=== PATIENT | male | born 1980 | race Caucasian/White ===

== ENCOUNTER → 2016-10-06 | Outpatient (CLI) | payer MEDICAID ==
[2016-10-07 16:40] LABS: CYTOPLASMIC (C-ANCA) <1:20 titer (Neg:<1:20)
[2016-10-08 10:14] LABS: ANGIOTENSIN-CONVERTING ENZYME 61 U/L (14-82)
[2016-10-09 13:37] LABS: ASPERGILLUS FLAVUS Negative (Neg:<1:1); ASPERGILLUS FUMIGATUS Negative (Neg:<1:1)
[2016-10-10 07:13] LABS: ASPERGILLUS NIGER Negative (Neg:<1:1)
== END ==
LOC: OD 11:48
PROVIDERS: ATTEND Internal Medicine Critical Care Medicine
DX: F41.9 Anxiety disorder, unspecified (principal); R05 Cough; R53.83 Other fatigue; R91.8 Other nonspecific abnormal finding of lung field; R06.02 Shortness of breath; Z72.0 Tobacco use
CPT/HCPCS: 36415; 82164; 85652; 86021; 86038; 86140; 86225; 86235; 86430; 86606

== ENCOUNTER → 2016-12-08 | Outpatient (CLI) | payer MEDICAID ==
[~2016-12-08] MED LIST: AMINOPHYLLINE INJ/PF 250 MG/10 ML SDV IV ONE; REGADENOSON INJ 0.4 MG/5 ML DISP.SYRIN IV ONE
--- NOTE | 2016-12-08 15:53 | DRAGON STRESS TEST REPORT ---
INTRAVENOUS LEXISCAN CARDIOLITE STRESS TEST USING SINGLE PHOTON EMMISION COMPUTERIZED TOMOGRAPHIC. DATE OF PROCEDURE: December 08, 2016 INDICATION : Chest pain. CARDIAC RISK FACTORS: Tobacco abuse RESTING EKG: Sinus rhythm without any baseline ST segment changes STRESS EKG: No significant changes noted with LexiScan bolus REASON FOR TERMINATION: Protocol. PROCEDURE REPORT: Baseline heart rate 53 beats per minute with blood pressure of 109/51. Patient had no significant complaints. Heart rate at 2 minutes post bolus 110 with a blood pressure of 103/45. 3 minutes post bolus heart rate 93 with blood pressure of 114/45. No significant EKG changes were noted. Patient had no significant complaints during the procedure or postprocedure. Patient injected with Aminophyllin 75 mg at 3 minutes or later after Lexiscan bolus. CONCLUSIONS: Normal EKG and hemodynamic response to IV LexiScan. NUCLEAR DATA: At rest the patient was given 10.36 millicuries of technetium 99 sestamibi injected intravenously. As per protocol rest gated SPECT images were obtained. Subsequently the patient was given intravenous LexiScan at a dose of 0.4 mg in 5 mL intravenously, followed by flush with normal saline. Subsequently the stress dose of 32.9 millicuries of technetium 99 sestamibi was injected intravenously. As per protocol stress gated images were obtained. NUCLEAR INTERPRETATION: Both raw and processed data were used for interpretation. Visual, qualitative, computer-generated quantitative data was used. There was good myocardial uptake of technetium compound. Motion artifact and soft tissue attenuations were noted. Increased visceral uptake was noted. No definitive areas of transient perfusion defect noted. No definitive areas of fixed perfusion defect or scars noted. EKG gated imaging showed LV EF at 58 %, rest and stress gated EF similar visually. T. I D. ratio was 1.04. Lung heart ratio noted to be within normal limits 0.30. No significant extracardiac and abnormal radiotracer activities were noted. RV free wall uptake was noted to be WNL. IMPRESSION: Also refer to comments under nuclear interpretation. Also test results needs to be interpreted in the context of pretest probability. 1. There is no definitive scintigraphic evidence of LexiScan induced myocardial ischemia. 2. There is no definitive scintigraphic evidence of myocardial infarction/scar. 3. EKG gated imaging shows left ejection fraction of approximately 58 %. 4. Clinical correlation requested as occasionally single vessel disease or balanced ischemia could be missed. In approximately 10% of the cases Lexiscan may not cause adequate vasodilatory stress. RECOMMENDATIONS: Aggressive risk factor modification, medical therapy. Clinical correlation with echocardiogram derived ejection fraction. Inability to exercise by itself can lead to increased cardiovascular event risks. Consider cardiology consultation and or follow-up if clinically indicated. I AM AVAILABLE FOR CARDIOLOGY CONSULTATION AND FOLLOWUP IF REQUESTED BY PMD Reuben Carballo M.D., [employer] cat sitter, Board certified in cardiovascular diseases, Nuclear cardiology, Echocardiography Cardiac CT and cardiac MRI Ph. [phone] [facility]
== END ==
LOC: RAD 06:51
PROVIDERS: ATTEND Internal Medicine Cardiovascular Disease
DX: R07.9 Chest pain, unspecified (principal)
CPT/HCPCS: 93017; 78452; A9500; J2785; J0280; Q9969

== ENCOUNTER 2016-12-22 09:06 | Emergency (ER) | payer MEDICAID ==
--- NOTE | 2016-12-22 09:53 | ER Document Report ---
ED General - General Chief Complaint: Passed Out Prior to Arrival Stated Complaint: ABDOMINAL PAIN Notes: Patient says he was driving his to work this morning when he started having abdominal pains. It became very severe and he then began to feel lightheaded and dizzy and went to pull his car over and passed out. His witnessed this loss of consciousness and had to stop the car. She says that he was shaking, almost like a seizure, and it lasted for a couple of minutes. Patient says he now feels fine. Denies having a fever or sweats. Denies any nausea or vomiting or diarrhea. He did have a bowel movement after this episode. Has not had any blood in his stools or black stools. No history of GI bleeding. TRAVEL OUTSIDE OF THE [place] IN LAST 30 DAYS: No - Related Data Allergies/Adverse Reactions: No Known Allergies Allergy (Verified 12/22/16 09:17) Past Medical History - Social History Smoking Status: Current Every Day Smoker Cigarette use (# per day): Yes Family History: Reviewed & Not Pertinent, Other - Asthma Patient has suicidal ideation: No Patient has homicidal ideation: No - Past Medical History Cardiac Medical History: Denies: Hx Coronary Artery Disease, Hx Heart Attack Pulmonary Medical History: Reports: Hx COPD Renal/ Medical History: Reports: Hx Kidney Stones. Denies: Hx Peritoneal Dialysis Past Surgical History: Reports: Hx Neurologic Surgery - BRAIN SURGERY AGE 2 to remove hematomas, no sequelae - Immunizations Immunizations up to date: Yes Hx Diphtheria, Pertussis, Tetanus Vaccination: Yes Review of Systems - Review of Systems Constitutional: denies: Fever Cardiovascular: denies: Chest pain, Palpitations Respiratory: denies: Cough, Short of breath, Wheezing Gastrointestinal: See HPI, Abdominal pain Genitourinary: No symptoms reported Neurological/Psychological: See HPI Physical Exam - Vital signs Vitals: Temp Pulse Resp BP Pulse Ox 97.5 F 63 20 119/74 100 12/22/16 09:17 12/22/16 09:17 12/22/16 09:17 12/22/16 09:17 12/22/16 09:17 Interpretation: Normal Course - Vital Signs Vital signs: Temp Pulse Resp BP Pulse Ox 97.5 F 63 20 119/74 100 12/22/16 09:17 12/22/16 09:17 12/22/16 09:17 12/22/16 09:17 12/22/16 09:17
[2016-12-22 10:24] LABS: ABSOLUTE EOSINOPHILS # (AUTO) 0.3 10^3/uL (0.0-0.6); ABSOLUTE LYMPHOCYTES (AUTO) 1.3 10^3/uL (0.5-4.7); ABSOLUTE MONOCYTES (AUTO) 0.5 10^3/uL (0.1-1.4); ABSOLUTE NEUT (AUTO) 4.8 10^3/uL (1.7-8.2); BASOPHILS % (AUTO) 0.6 % (0-2); EOSINOPHILS % (AUTO) 4.7 % (0-6); HEMATOCRIT 43.8 % (37.9-51.0); HEMOGLOBIN 14.2 g/dL (13.5-17.0); HGB HCT DIFFERENCE -1.2; LYMPHOCYTES % (AUTO) 18.9 % (13-45); MEAN CORPUSCULAR HEMOGLOBIN 29.3 pg (27.0-33.4); MEAN CORPUSCULAR HGB CONC 32.4 g/dL (32.0-36.0); MEAN CORPUSCULAR VOLUME 91 fl (80-97); MONOCYTES % (AUTO) 7.7 % (3-13); RED BLOOD COUNT 4.84 10^6/uL (4.35-5.55); SEGMENTED NEUTROPHILS % (AUTO) 68.1 % (42-78)
[2016-12-22 10:42] LABS: APPEARANCE,URINE CLEAR; BILIRUBIN,URINE NEGATIVE (NEGATIVE); GLUCOSE, URINE NEGATIVE (NEGATIVE); KETONES,URINE NEGATIVE (NEGATIVE); LEUKOCYTE ESTERASE,URINE NEGATIVE (NEGATIVE); NITRITE,URINE NEGATIVE (NEGATIVE); PROTEIN,URINE NEGATIVE (NEGATIVE); URINE SPECIFIC GRAVITY 1.006; UROBILINOGEN,URINE NEGATIVE mg/dL (<2.0)
[2016-12-22 10:44] LABS: ALANINE AMINOTRANSFERASE 32 U/L (21-72); ALKALINE PHOSPHATASE 83 U/L (38-126); ANION GAP 15 (5-19); ASPARTATE AMINO TRANSFERASE 17 U/L (17-59); BILIRUBIN,DIRECT 0.3 mg/dL (0.0-0.4); BILIRUBIN,TOTAL 0.8 mg/dL (0.2-1.3); BLOOD UREA NITROGEN 16 mg/dL (7-20); CALCIUM 9.8 mg/dL (8.4-10.2); CARBON DIOXIDE 23 mmol/L (22-30); CHLORIDE 106 mmol/L (98-107); CREATININE RESULT 0.82 mg/dL (0.52-1.25); GLUCOSE 89 mg/dL (75-110); LIPASE 74.7 U/L (23-300); POTASSIUM 4.4 mmol/L (3.6-5.0); SODIUM 144.4 mmol/L (137-145); TOTAL PROTEIN 7.8 g/dL (6.3-8.2)
--- NOTE | 2016-12-22 12:23 | ER Document Report ---
ED GI/ - General Mode of Arrival: Ambulatory Information source: Patient TRAVEL OUTSIDE OF THE [place] IN LAST 30 DAYS: No - HPI Patient complains to provider of: Abdominal pain Onset: This morning Location: Suprapubic Associated symptoms: Other - see notes above <PHILLIP PARDO - Last Filed: 12/22/16 17:22> <LAURAITALO ANN - Last Filed: 12/22/16 19:22> - General Chief Complaint: Passed Out Prior to Arrival Stated Complaint: ABDOMINAL PAIN Notes: 36 year old male with no history of GI surgeries or bleeds presents to the ED complaining of having a syncopal episode while driving a car secondary to severe suprapubic abdominal pain that occurred earlier this morning. Patient states that he was driving when he suddenly developed severe suprapubic pain and felt lightheaded and dizzy. Patient lost consciousness prior to stopping the vehicle, so his had to stop the car. Patient is not complaining of pain at bed side. Patient reports he has had pain like this before, but not to his suprapubic region. Patient denies being sick recently, but reports an intermittent cough. Patient denies nausea, vomiting, diarrhea, or blood in stool. (PHILLIP PARDO) - Related Data Allergies/Adverse Reactions: No Known Allergies Allergy (Verified 12/22/16 12:21) Past Medical History - General Information source: Patient - Social History Smoking Status: Current Every Day Smoker Cigarette use (# per day): Yes Family History: Other - Asthma Patient has suicidal ideation: No Patient has homicidal ideation: No - Past Medical History Cardiac Medical History: Denies: Hx Coronary Artery Disease, Hx Heart Attack Pulmonary Medical History: Reports: Hx Asthma, Hx COPD Renal/ Medical History: Reports: Hx Kidney Stones. Denies: Hx Peritoneal Dialysis Past Surgical History: Reports: Hx Neurologic Surgery - BRAIN SURGERY AGE 2 to remove hematomas, no sequelae - Immunizations Immunizations up to date: Yes Hx Diphtheria, Pertussis, Tetanus Vaccination: Yes <PHILLIP PRADO - Last Filed: 12/22/16 17:22> Review of Systems - Review of Systems Constitutional: No symptoms reported EENT: No symptoms reported Cardiovascular: No symptoms reported Respiratory: No symptoms reported Gastrointestinal: See HPI, Abdominal pain - suprapubic; not currently.. denies : Diarrhea, Nausea, Vomiting Genitourinary: No symptoms reported Male Genitourinary: No symptoms reported Musculoskeletal: No symptoms reported Skin: No symptoms reported Hematologic/Lymphatic: No symptoms reported Neurological/Psychological: No symptoms reported -: Yes All other systems reviewed and negative <PHILLIP PARDO - Last Filed: 12/22/16 17:22> Physical Exam - General General appearance: Alert In distress: None - HEENT Head: Normocephalic, Atraumatic Eyes: Normal Extraocular movements intact: Yes Pupils: PERRL - Respiratory Respiratory status: No respiratory distress Breath sounds: Normal - Cardiovascular Rhythm: Regular Heart sounds: Normal auscultation - Abdominal Inspection: Normal Distension: No distension Tenderness: Nontender - Back Back: Normal - Extremities General upper extremity: Normal inspection, Normal ROM General lower extremity: Normal inspection, Normal ROM - Neurological Neuro grossly intact: Yes Cognition: Normal Orientation: AAOx4 Jorge Coma Scale Eye Opening: Spontaneous Jorge Coma Scale Verbal: Oriented Parkin Coma Scale Motor: Obeys Commands Parkin Coma Scale Total: 15 Speech: Normal - Psychological Associated symptoms: Normal affect, Normal mood - Skin Skin Temperature: Warm Skin Moisture: Dry Skin Color: Normal <PHILLIP PARDO - Last Filed: 12/22/16 17:22> Course - Laboratory Result Diagrams: 12/22/16 10:06 12/22/16 10:06 <PHILLIP PARDO - Last Filed: 12/22/16 17:22> - Laboratory Result Diagrams: 12/22/16 10:06 12/22/16 10:06 - Diagnostic Test Radiology reviewed: Reports reviewed - EKG Interpretation by Me EKG shows normal: Sinus rhythm Rate: Normal Rhythm: NSR <ITALO SANCHEZ - Last Filed: 12/22/16 19:22> - Re-evaluation Re-evalutation: 12/22/16 13:16 Patient requested food and is eating without difficulty. Blood work within normal limits. No complaints at this time. 12/22/16 13:44 Patient feels better like to go home. No abdominal pain. No further concerns. Stable for discharge. Return if any worsening or concerning symptoms. (ITALO SANCHEZ) - Vital Signs Vital signs: Temp Pulse Resp BP Pulse Ox 97.7 F 63 11 L 114/73 100 12/22/16 14:01 12/22/16 09:18 12/22/16 14:01 12/22/16 14:01 12/22/16 14:01 Discharge <PHILLIP PARDO - Last Filed: 12/22/16 17:22> <ITALO SANCHEZ - Last Filed: 12/22/16 19:22> - Discharge Clinical Impression: Abdominal pain Qualifiers: Abdominal location: epigastric Qualified Code(s): R10.13 - Epigastric pain Syncope Qualifiers: Syncope type: unspecified Qualified Code(s): R55 - Syncope and collapse Condition: Stable Disposition: HOME, SELF-CARE Instructions: Abdominal Pain ([facility]), Syncopal Episode ([facility]), Vasovagal Symptoms ([facility]) Referrals: YELENA ROSAS MD [Primary Care Provider] - Follow up tomorrow Scribe Attestation: 12/22/16 19:22 I personally performed the services described in the documentation, reviewed and edited the documentation which was dictated to the scribe in my presence, and it accurately records my words and actions. (ITALO SANCHEZ) Scribe Documentation - Scribe Written by Jacobe:: Shania Tee, 12/22/2016 1224 acting as scribe for :: Laura <PHILLIP PARDO - Last Filed: 12/22/16 17:22>
[2016-12-22] MEDS ORDERED: NORMAL SALINE 500 ML IV ONE (13:04)
[2016-12-22 14:12] VITALS: BP 114/73
--- NOTE | 2016-12-22 15:38 | EKG REPORT ---
SEVERITY:- ABNORMAL ECG - SINUS RHYTHM PROBABLE LEFT ATRIAL ABNORMALITY LEFT VENTRICULAR HYPERTROPHY ST ELEV, PROBABLE NORMAL EARLY REPOL PATTERN : Confirmed by: Elisabet Soto MD 22-Dec-2016 15:36:38
== END 2016-12-22 14:28 | disposition home or self-care (01) ==
LOC: ER 09:06
DX: R10.13 Epigastric pain (principal); R10.30 Lower abdominal pain, unspecified; R55 Syncope and collapse; R05 Cough; F17.210 Nicotine dependence, cigarettes, uncomplicated; J44.9 Chronic obstructive pulmonary disease, unspecified; Z87.442 Personal history of urinary calculi
CPT/HCPCS: 93005; 99284; 96360; 36415; 83690; 85025; 80053; 81001; 84484; 70450; 93010; J7040

== ENCOUNTER 2017-03-07 14:19 | Emergency (ER) | payer MEDICAID ==
[2017-03-07 14:26] VITALS: BP 134/78
== END 2017-03-07 17:28 | disposition left against medical advice (07) ==
LOC: ER 14:19
DX: Z53.21 Procedure and treatment not carried out due to patient leaving prior to being seen by health care provider (principal)

== ENCOUNTER 2017-10-20 01:11 | Emergency (ER) | payer MEDICAID ==
[2017-10-20] MEDS ORDERED: OXYCODONE-ACETAMINOPHEN 5-325 MG TABLET PO ONE (02:37)
--- NOTE | 2017-10-20 03:14 | RADIOLOGY REPORT (SQ) ---
EXAM DESCRIPTION: L SPINE WHOLE COMPLETED DATE/TIME: 10/20/2017 2:55 am REASON FOR STUDY: back injury, pain COMPARISON: Lumbar spine x-ray 02/22/2016. NUMBER OF VIEWS: Five views including obliques. TECHNIQUE: AP, lateral, oblique, and sacral radiographic images acquired of the lumbar spine. LIMITATIONS: None. FINDINGS: MINERALIZATION: Normal. SEGMENTATION: Normal. No transitional anatomy. ALIGNMENT: There is mild levocurvature of the lumbar spine. VERTEBRAE: Maintained height. No compression fracture. DISCS: Preserved height. No significant osteophytes or end plate irregularity. POSTERIOR ELEMENTS: Pedicles and facets appear intact. HARDWARE: None in the spine. PARASPINAL SOFT TISSUES: Normal. PELVIS: SI joints intact. IMPRESSION: No acute radiographic finding at the lumbar spine. TECHNICAL DOCUMENTATION: JOB ID: [id number] [employer]- All Rights Reserved
[2017-10-20] MEDS ORDERED: CYCLOBENZAPRINE HCL 10 MG TABLET PO ONE (03:34)
[2017-10-20] MEDS ORDERED: HYDROCODONE/ACETAMINOPHEN 5-325 MG (6 TAB/ER DISP) PO PRN (03:34)
--- NOTE | 2017-10-20 03:34 | ER Document Report ---
ED Neck/Back Problem - General Chief Complaint: Back Injury Stated Complaint: BACK PAIN/INJURY Time Seen by Provider: 10/20/17 02:27 Mode of Arrival: Ambulatory Information source: Patient Notes: Patient is a 37-year-old male who presents to the ER today for low back pain after lifting a very heavy trailer 3 days ago. Patient states that he immediately had sharp back pain in the middle of his low back. He states he thought it would go away so he is just been resting at home but that it has stayed. He denies any numbness or tingling, radiation of the pain anywhere. TRAVEL OUTSIDE OF THE [place] IN LAST 30 DAYS: No - Related Data Allergies/Adverse Reactions: No Known Allergies Allergy (Verified 10/20/17 01:39) Past Medical History - General Information source: Patient - Social History Smoking Status: Unknown if Ever Smoked Family History: Other - Asthma Patient has suicidal ideation: No Patient has homicidal ideation: No - Past Medical History Cardiac Medical History: Denies: Hx Coronary Artery Disease, Hx Heart Attack Pulmonary Medical History: Reports: Hx Asthma, Hx COPD Renal/ Medical History: Reports: Hx Kidney Stones. Denies: Hx Peritoneal Dialysis Past Surgical History: Reports: Hx Neurologic Surgery - BRAIN SURGERY AGE 2 to remove hematomas, no sequelae - Immunizations Immunizations up to date: Yes Hx Diphtheria, Pertussis, Tetanus Vaccination: Yes Review of Systems - Review of Systems Constitutional: No symptoms reported EENT: No symptoms reported Cardiovascular: No symptoms reported Respiratory: No symptoms reported Gastrointestinal: No symptoms reported Genitourinary: No symptoms reported Male Genitourinary: No symptoms reported Musculoskeletal: See HPI Skin: No symptoms reported Hematologic/Lymphatic: No symptoms reported Neurological/Psychological: No symptoms reported Physical Exam - Vital signs Vitals: Temp Pulse Resp BP Pulse Ox 98.6 F 70 16 121/71 100 10/20/17 01:44 10/20/17 01:44 10/20/17 01:44 10/20/17 01:44 10/20/17 01:44 - Notes Notes: PHYSICAL EXAMINATION: GENERAL: Uncomfortable appearing, but in no acute distress. HEAD: Atraumatic, normocephalic. EYES: Pupils equal round and reactive to light, extraocular movements intact, sclera anicteric, conjunctiva are normal. ENT: ear canals without erythema or foreign body, TMs pearly mcintyre with good bony landmarks, nares patent, oropharynx clear without exudates. Moist mucous membranes. NECK: Normal range of motion, supple without lymphadenopathy LUNGS: CTAB and equal. No wheezes rales or rhonchi. HEART: Regular rate and rhythm without murmurs ABDOMEN: Soft, no tenderness. No guarding, no rebound BACK: Lumbar vertebral tenderness, normal ROM GI/: no CVA tenderness EXTREMITIES: Normal range of motion, no pitting edema. No cyanosis. NEUROLOGICAL: Cranial nerves grossly intact. Normal sensory/motor exams. PSYCH: Normal mood, normal affect. SKIN: Warm, Dry, normal turgor, no rashes or lesions noted Course - Re-evaluation Re-evalutation: 10/20/17 05:45 X-ray of the lumbar spine negative for any acute pathology today. Patient placed on muscle relaxers and given anti-inflammatories. - Vital Signs Vital signs: Temp Pulse Resp BP Pulse Ox 97.5 F 62 16 115/76 99 10/20/17 03:46 10/20/17 03:46 10/20/17 03:46 10/20/17 03:46 10/20/17 03:46 Discharge - Discharge Clinical Impression: Back pain Qualifiers: Back pain location: low back pain Chronicity: acute Back pain laterality: midline Sciatica presence: without sciatica Qualified Code(s): M54.5 - Low back pain Condition: Stable Disposition: HOME, SELF-CARE Additional Instructions: Return immediately for any new or worsening symptoms. Follow up with primary care provider, call tomorrow to make followup appointment. Prescriptions: Cyclobenzaprine HCl [Flexeril 10 mg Tablet] 10 mg PO TIDP PRN #15 tab PRN Reason: Ibuprofen [Motrin 800 mg Tablet] 800 mg PO Q8H PRN #30 tab PRN Reason:
[2017-10-20 03:47] VITALS: BP 115/76
== END 2017-10-20 04:00 | disposition home or self-care (01) ==
LOC: ER 01:11
DX: M54.5 Low back pain (principal); X50.0XXA Overexertion from strenuous movement or load, initial encounter
CPT/HCPCS: 99283; 72110; J3490

== ENCOUNTER 2017-12-11 16:02 | Emergency (ER) | payer MEDICAID ==
[2017-12-11 16:12] VITALS: BP 116/72
[2017-12-11] MEDS ORDERED: PREDNISONE 20 MG TABLET PO ONE (16:43)
[2017-12-11] MEDS ORDERED: CEPHALEXIN 500 MG CAPSULE PO ONE (16:43)
[2017-12-11] MEDS ORDERED: IBUPROFEN 800 MG TABLET PO ONE (16:43)
--- NOTE | 2017-12-11 16:50 | ER Document Report ---
ED Skin Rash/Insect Bite/Abscs - General Chief Complaint: Arm Problem Stated Complaint: RIGHT ARM PAIN Time Seen by Provider: 12/11/17 16:21 Mode of Arrival: Ambulatory Information source: Patient Notes: 37-year-old male presents to ED for red swollen area to the right hand and posterior right elbow that is present when he woke up this morning. Both areas appear to have an insect bite on them that he has been scratching and itching. He states they both burn and itch. He states he has been taken Tylenol with no relief. He states he had to go on a field trip with his friends daughter this morning and this is as early as he can come to the emergency room. Patient asked what he was going to get for his pain for these red areas. I explained to him that he was getting ibuprofen for his pain antibiotic for the cellulitis and he was good that Benadryl when he got home for the itching and I was going to give him a dose of prednisone for the itching. He states he needs something stronger because he has chronic pain to his back and neck. I explained to him that we do not give narcotics for this exam or for chronic pain. TRAVEL OUTSIDE OF THE [place] IN LAST 30 DAYS: No - HPI Patient complains to provider of: Tender/swollen area, Insect bite - Possible insect bite to hand and elbow Onset: This morning Onset/Duration: Persistent, Worse Quality of pain: Burning Severity: Moderate Pain Level: 4 Skin Character: Erythema, Thickening, Other - Insect bite appearing redness and swelling with some warmth after he has been scratching it all day. 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 Lives with: Spouse/Significant other Family History: Reviewed & Not Pertinent, COPD, Other - Asthma Patient has suicidal ideation: No Patient has homicidal ideation: No - Past Medical History Cardiac Medical History: Reports: None Pulmonary Medical History: Reports: Hx Asthma, Hx COPD EENT Medical History: Reports: None Neurological Medical History: Reports: None Endocrine Medical History: Reports: None Renal/ Medical History: Reports: Hx Kidney Stones Malignancy Medical History: Reports None GI Medical History: Reports: Hx Gastritis - And gastroenteritis Musculoskeltal Medical History: Reports Hx Arthritis, Reports Hx Musculoskeletal Deformity, Reports Hx Musculoskeletal Trauma Skin Medical History: Reports Hx Cellulitis Psychiatric Medical History: Reports: Hx Anxiety, Hx Bipolar Disorder, Hx Depression, Other - Was a cutter while he was with his previous significant other days he is no Traumatic Medical History: Reports: Hx Fractures - Left arm Infectious Medical History: Reports: None Past Surgical History: Reports: Hx Neurologic Surgery - BRAIN SURGERY AGE 2 to remove hematomas, no sequelae, Hx Oral Surgery - [place] teeth - Immunizations Immunizations up to date: Yes Hx Diphtheria, Pertussis, Tetanus Vaccination: Yes Review of Systems - Review of Systems Constitutional: No symptoms reported EENT: No symptoms reported Cardiovascular: No symptoms reported Respiratory: No symptoms reported Gastrointestinal: No symptoms reported Genitourinary: No symptoms reported Male Genitourinary: No symptoms reported Musculoskeletal: No symptoms reported Skin: Other - Red swollen warm area to the right hand and elbow. No abscess at this time. Appears to have some insect bites in the area. Hematologic/Lymphatic: No symptoms reported Neurological/Psychological: No symptoms reported -: Yes All other systems reviewed and negative Physical Exam - Vital signs Vitals: Temp Pulse Resp BP Pulse Ox 98.2 F 78 18 116/72 99 12/11/17 16:11 12/11/17 16:11 12/11/17 16:11 12/11/17 16:11 12/11/17 16:11 Interpretation: Normal - General General appearance: Appears well, Alert - HEENT Head: Normocephalic, Atraumatic Eyes: Normal Pupils: PERRL - Respiratory Respiratory status: No respiratory distress Chest status: Nontender Breath sounds: Normal Chest palpation: Normal - Cardiovascular Rhythm: Regular Heart sounds: Normal auscultation Murmur: No - Abdominal Inspection: Normal Distension: No distension Bowel sounds: Normal Tenderness: Nontender Organomegaly: No organomegaly - Back Back: Normal, Nontender - Extremities General upper extremity: Normal ROM General lower extremity: Normal inspection, Nontender, Normal color, Normal ROM , Normal temperature, Normal weight bearing. No: Larry's sign Elbow: Tender, Other - Red mildly swollen area just above the right elbow what appears to be insect bites in the area with mild warmth to the area. No: Abrasion, Deformity, Dislocation, Ecchymosis, Instability, Joint effusion, Laceration, Limited ROM, Swollen bursa Hand: Tender, No evidence of human bite - with what appears to be insect bites and it it is warm to the touch, No evidence of FB, Swelling, Other - Erythematous right hand. No: Abrasion, Deformity, Dislocation, Ecchymosis, Instability, Laceration, Nail injury, Tendon deficit - Neurological Neuro grossly intact: Yes Cognition: Normal Orientation: AAOx4 [place] Coma Scale Eye Opening: Spontaneous [place] Coma Scale Verbal: Oriented Jorge Coma Scale Motor: Obeys Commands Jorge Coma Scale Total: 15 Speech: Normal Motor strength normal: LUE, RUE, LLE, RLE Sensory: Normal - Psychological Associated symptoms: Normal affect, Normal mood - Skin Skin Temperature: Warm Skin Moisture: Dry Skin Color: Normal Location of irregularity: Extremities - Right hand and elbow cellulitis Character of irregularity: Erythematous, Urticarial Irregularity with: Swelling, Tenderness Course - Re-evaluation Re-evalutation: 12/12/17 02:13 Patient treated with prednisone and ibuprofen and Keflex for his redness swelling and discomfort to his right arm and hand. Patient instructed to take Benadryl as soon as he comes home. Patient was discharged home with a prescription for Keflex. Patient to follow-up with primary doctor. - Vital Signs Vital signs: Temp Pulse Resp BP Pulse Ox 98.2 F 78 18 116/72 99 12/11/17 16:11 12/11/17 16:11 12/11/17 16:11 12/11/17 16:11 12/11/17 16:11 Discharge - Discharge Clinical Impression: Cellulitis of right hand excluding fingers and thumb, Cellulitis of right elbow Insect bite Qualifiers: Encounter type: initial encounter Qualified Code(s): W57.XXXA - Bitten or stung by nonvenomous insect and other nonvenomous arthropods, initial encounter Condition: Stable Disposition: HOME, SELF-CARE Instructions: Family Physicians / Practices Additional Instructions: Insect Bites You have been bitten by an insect. These bites can cause two types of swelling: an initial swelling due to insect saliva or injected poison, and a late reaction due to your body's allergic reaction. This initial local reaction may be uncomfortable but is not dangerous. Often there's an itchy "hive" at the bite location. This is treated with antihistamines, cold compresses, and resting the affected body part. The later reaction often develops about the second day. The entire area becomes very swollen, red, itchy, and tender. This is an allergic reaction. Your body is attacking the leftover insect saliva or venom. This type of allergy is unpleasant, but not dangerous. We treat this swelling with cortisone -type medicine. Sometimes we use antibiotics if we're worried about infection. Antihistamines help with the itch. If you develop a fever, chills, a red streak, or swollen glands in the area of the bite, infection may be starting. Return at once. CELLULITIS: You have an infection of your skin and underlying soft tissues called cellulitis. This is due to bacteria, which can enter through any break in the skin, or even through an irritated hair follicle. Untreated, cellulitis will usually worsen. Antibiotics are required. Usually, warm packs or warm soaks, and elevation of the infected area are recommended. You should start getting better within 24 to 36 hours. Most infections respond quickly to the right medication. Follow-up care is important, however, to check for abscess (boil) formation, unsuspected foreign body, or resistant infection. If you develop fever, chills, or if the area of infection is becoming rapidly more swollen or painful, call the doctor at once. Cephalexin The antibiotic you've been prescribed is a member of the cephalosporin class. This type of antibiotic covers a wide variety of infections, including those of the skin, lungs, and urinary tract. It's useful for staph infections. This antibiotic is slightly similar to the penicillin family. In rare cases , a person who is allergic to penicillin will also be allergic to this medication. If you have had a severe allergic reaction to penicillin, and have not taken this antibiotic since that time, notify your doctor. Antibiotics which cover many germs ("broad spectrum" antibiotics) are more likely to cause diarrhea or "yeast" infections. Women prone to vaginal yeast problems may suffer an attack after taking this antibiotic. In infants, oral thrush (white spots "stuck" on the cheek) or yeast diaper rash may result. See your doctor if these problems occur. Call at once if you develop itching, hives , shortness of breath, or lightheadedness. Diphenhydramine The use of diphenhydramine (Benadryl) has been recommended to control allergic symptoms. The 25 mg strength is available over- the-counter, as well as the elixir. This antihistamine is used for many symptoms. It's useful for itching, watering eyes and nose, allergic swelling, hives, and insect stings. The medication can be repeated four times daily. Age Elixir (12.5 mg/tsp) 25 mg pill 1 yr 1/4 tsp 2-3 yr 1/2 tsp 4-8 yr 1 tsp 9-14 yr 2 tsp one tab adult 1-2 tabs Antihistamines may cause drowsiness, especially with the first dose. Do not operate machinery or drive while under the effects of the medication. Do not combine the medication with alcohol, or with any other medication without talking to your doctor. Ibuprofen Ibuprofen is an excellent, safe drug for pain control. In addition, it has potent antiinflammatory effects which are beneficial, especially in the treatment of injuries, arthritis, or tendonitis. It's best to take ibuprofen with food. Persons with ulcer disease or allergy to aspirin should notify their physician of this before taking ibuprofen. Take the medication exactly as prescribed. Don't take additional doses unless instructed to do so by your doctor. If you develop wheezing, shortness of breath, hives, faintness, stomach pain, vomiting, or dark black stools, return for re-evaluation at once. Ice & Elevation Apply ice packs frequently against the painful area. Many different schedules are recommended, such as "20 minutes on, 20 minutes off" or "one hour ice, two hours rest." If you need to work, you may need to go longer between ice treatments. You should plan to have the area ice packed AT LEAST one- fourth of the time. The ice should be applied over the wrap, tape, or splint, or over a layer of cloth -- not directly against the skin. Some ice bags have a built-in cloth and can be put directly on the skin. Your injured part should be elevated as much as possible over the next 48 hours. Try to keep the injury above the level of the heart. Avoid use of the injured area. Elevation and rest will decrease the swelling. FOLLOW-UP CARE: If you have been referred to a physician for follow-up care, call the physician s office for an appointment as you were instructed or within the next two days. If you experience worsening or a significant change in your symptoms, notify the physician immediately or return to the Emergency Department at any time for re-evaluation. Prescriptions: Cephalexin Monohydrate [Keflex 500 mg Capsule] 500 mg PO Q6H 5 Days capsule Forms: Smoking Cessation Education
== END 2017-12-11 17:11 | disposition home or self-care (01) ==
LOC: ER 16:02
DX: L03.113 Cellulitis of right upper limb (principal); S60.561A Insect bite (nonvenomous) of right hand, initial encounter; S50.361A Insect bite (nonvenomous) of right elbow, initial encounter; M79.601 Pain in right arm; M54.9 Dorsalgia, unspecified; M54.2 Cervicalgia; G89.29 Other chronic pain; W57.XXXA Bitten or stung by nonvenomous insect and other nonvenomous arthropods, initial encounter; F17.210 Nicotine dependence, cigarettes, uncomplicated; J44.9 Chronic obstructive pulmonary disease, unspecified
CPT/HCPCS: 99406; 99283; J3490; J7512

== ENCOUNTER 2018-01-24 20:10 | Emergency (ER) | payer MEDICAID ==
[2018-01-24 20:40] VITALS: BP 117/66
[2018-01-24] MEDS ORDERED: HYDROCODONE/ACETAMINOPHEN 5-325 MG (6 TAB/ER DISP) PO PRN (21:30)
[2018-01-24] MEDS ORDERED: CEPHALEXIN 500 MG CAPSULE PO ONE (21:30)
--- NOTE | 2018-01-24 21:34 | ER Document Report ---
HPI - HPI Patient complains to provider of: facial swelling Pain Level: 4 Context: Patient is a 37-year-old male that comes emergency department for chief complaint of pain in his left jaw towards the back near his ear, he states that swelling started over the past day, has worsened and now has become painful. He denies injury, sore throat, neck pain, fever. He states he has had dental infections in the past but they felt very different. He smokes, he denies any daily medications other than recently taking azithromycin. - CONSTITUTIONAL Constitutional: DENIES: Fever, Chills - EENT EENT: DENIES: Sore Throat, Ear Pain, Eye problems - NEURO Neurology: DENIES: Headache, Weakness, Vision blurred, Dizzinesss / Vertigo - CARDIOVASCULAR Cardiovascular: DENIES: Chest pain - RESPIRATORY Respiratory: DENIES: Trouble Breathing, Coughing - GASTROINTESTINAL Gastrointestinal: DENIES: Abdominal Pain, Black / Bloody Stools - URINARY Urinary: DENIES: Dysuria, Urgency, Frequency - REPRODUCTIVE Reproductive: DENIES: :, Postmenopausal, Abnormal bleeding / discharge - MUSCULOSKELETAL Musculoskeletal: DENIES: Extremity pain Past Medical History - General Information source: Patient - Social History Smoking Status: Current Every Day Smoker Chew tobacco use (# tins/day): No Frequency of alcohol use: None Drug Abuse: None Lives with: Family Family History: Reviewed & Not Pertinent, COPD, Other - Asthma Patient has suicidal ideation: No Patient has homicidal ideation: No Pulmonary Medical History: Reports: Hx Asthma, Hx COPD Renal/ Medical History: Reports: Hx Kidney Stones. Denies: Hx Peritoneal Dialysis GI Medical History: Reports: Hx Gastritis - And gastroenteritis Musculoskeltal Medical History: Reports Hx Arthritis, Reports Hx Musculoskeletal Deformity, Reports Hx Musculoskeletal Trauma Skin Medical History: Reports Hx Cellulitis Psychiatric Medical History: Reports: Hx Anxiety, Hx Bipolar Disorder, Hx Depression Traumatic Medical History: Reports: Hx Fractures - Left arm Past Surgical History: Reports: Hx Neurologic Surgery - BRAIN SURGERY AGE 2 to remove hematomas, no sequelae, Hx Oral Surgery - [place] teeth - Immunizations Immunizations up to date: Yes Hx Diphtheria, Pertussis, Tetanus Vaccination: Yes Vertical Provider Document - CONSTITUTIONAL General Appearance: No Apparent Distress, Thin - INFECTION CONTROL TRAVEL OUTSIDE OF THE [place] IN LAST 30 DAYS: No - HEENT HEENT: Atraumatic, Normocephalic. negative: Normal ENT Exam - There is a swelling over the mandible at the posterior aspect just anterior to the left ear , tenderness to the area, no overt erythema, no abnormal heat to the area, no nearby adenopathy, unremarkable ear exam, unremarkable oropharyngeal exam except for some dental caries but no evidence of dental infection. No stones noted underneath the tongue. - NECK Neck: Normal Inspection - RESPIRATORY Respiratory: Breath Sounds Normal, No Respiratory Distress - CARDIOVASCULAR Cardiovascular: Regular Rate, Regular Rhythm - GI/ABDOMEN Gastrointestinal: Abdomen Soft, Abdomen Non-Tender - MUSCULOSKELETAL/EXTREMETIES Musculoskeletal/Extremeties: MAEW, FROM, Non-Tender - NEURO Level of Consciousness: Awake, Alert, Appropriate - DERM Integumentary: Warm, Dry, No Rash Course - Re-evaluation Re-evalutation: Examination is consistent with inflammation and swelling of the parotid gland, no adenopathy, no evidence of El's angina, no evidence of abscess, unremarkable oropharyngeal exam. Discussed with patient, decision was made to cover with Keflex because of developing pain in the area, discussed expectations , management, follow-up, return precautions. Patient states satisfaction and agreement with plan. - Vital Signs Vital signs: Temp Pulse Resp BP Pulse Ox 98.6 F 90 20 117/66 98 01/24/18 20:39 01/24/18 20:39 01/24/18 20:39 01/24/18 20:39 01/24/18 20:39 Discharge - Discharge Clinical Impression: Facial swelling, Salivary gland swelling Condition: Stable Disposition: HOME, SELF-CARE Additional Instructions: Your examination is consistent with swelling of the parotid salivary gland. Keep well hydrated, apply moist heat to the involved area, massage the gland, and "milk" the duct. Nonpharmacologic agents that promote salivary flow (eg, tart, hard candies such as lemon drops) may be helpful and should be used throughout the day as often as tolerated. Avoid medications that reduce salivary gland production including Benadryl and [id number] antiallergy medications for now. Take ibuprofen or Tylenol for pain, use the pain medicine provided especially at night if needed for sleep. Take the Keflex antibiotics as prescribed. Follow-up with primary care. Return if you develop any concerning symptoms including severe worsening swelling, fever, or any other concerning or worsening symptoms. Prescriptions: Cephalexin Monohydrate [Keflex 500 mg Capsule] 500 mg PO QID #28 capsule
== END 2018-01-24 21:46 | disposition home or self-care (01) ==
LOC: ER 20:10
DX: R59.0 Localized enlarged lymph nodes (principal); R68.84 Jaw pain; K02.9 Dental caries, unspecified; J44.9 Chronic obstructive pulmonary disease, unspecified; F17.200 Nicotine dependence, unspecified, uncomplicated
CPT/HCPCS: 99283

== ENCOUNTER 2018-04-20 21:54 | Emergency (ER) | payer MEDICAID ==
[2018-04-20] MEDS ORDERED: NORMAL SALINE 1000 ML 1,000 ML IV ONE (23:18)
[2018-04-20] MEDS ORDERED: ONDANSETRON HCL INJ/PF 4 MG/2 ML SDV IV ONE (23:19)
--- NOTE | 2018-04-20 23:20 | ER Document Report ---
ED General - General Chief Complaint: Nausea/Vomiting Stated Complaint: VOMITING/DIZZY Time Seen by Provider: 04/20/18 22:53 Notes: Patient is a 37-year-old male comes emergency department for chief complaint of nausea and vomiting. He states that he was started on medications gabapentin and baclofen yesterday, took his first dose last night and that made him fall asleep, states that 30 minutes after taking the pills this afternoon he suddenly became very nauseated and vomited multiple times. He states he still feels nauseated, he feels dehydrated, he reports mild pain in his upper abdomen after the vomiting. He denies fever or chills he reports normal bowel movement , the people who ate the food he ate have not had any vomiting. Denies any alcohol, recreational drugs. He smokes, he has a history of back pain and was placed on medications for this. TRAVEL OUTSIDE OF THE [place] IN LAST 30 DAYS: No - Related Data Allergies/Adverse Reactions: No Known Allergies Allergy (Verified 04/20/18 23:11) Past Medical History - General Information source: Patient - Social History Smoking Status: Current Every Day Smoker Frequency of alcohol use: None Drug Abuse: None Lives with: Family Family History: Reviewed & Not Pertinent, COPD, Other - Asthma Patient has suicidal ideation: No Patient has homicidal ideation: No Pulmonary Medical History: Reports: Hx Asthma, Hx COPD Renal/ Medical History: Reports: Hx Kidney Stones. Denies: Hx Peritoneal Dialysis GI Medical History: Reports: Hx Gastritis - And gastroenteritis Musculoskeletal Medical History: Reports Hx Arthritis, Reports Hx Musculoskeletal Deformity, Reports Hx Musculoskeletal Trauma Skin Medical History: Reports Hx Cellulitis Psychiatric Medical History: Reports: Hx Anxiety, Hx Bipolar Disorder, Hx Depression Traumatic Medical History: Reports: Hx Fractures - Left arm Past Surgical History: Reports: Hx Neurologic Surgery - BRAIN SURGERY AGE 2 to remove hematomas, no sequelae, Hx Oral Surgery - [place] teeth - Immunizations Immunizations up to date: Yes Hx Diphtheria, Pertussis, Tetanus Vaccination: Yes Review of Systems - Review of Systems Constitutional: No symptoms reported EENT: No symptoms reported Cardiovascular: No symptoms reported Respiratory: No symptoms reported Gastrointestinal: See HPI Genitourinary: No symptoms reported Male Genitourinary: No symptoms reported Musculoskeletal: No symptoms reported Skin: No symptoms reported Hematologic/Lymphatic: No symptoms reported Neurological/Psychological: No symptoms reported Physical Exam - Vital signs Vitals: Temp Pulse Resp BP Pulse Ox 97.9 F 89 18 133/83 H 100 04/20/18 22:02 04/20/18 22:02 04/20/18 22:02 04/20/18 22:02 04/20/18 22:02 - Notes Notes: GENERAL: Alert. No acute distress. HEAD: Normocephalic, atraumatic. EYES: Pupils equal, round, and reactive to light. Extraocular movements intact. ENT: Oral mucosa dry, normal oropharyngeal exam, unremarkable ENT exam otherwise NECK: Full range of motion. Supple. Trachea midline. LUNGS: Clear to auscultation bilaterally, no wheezes, rales, or rhonchi. No respiratory distress. HEART: Regular rate and rhythm. No murmur ABDOMEN: Mild epigastric tenderness, no right upper quadrant or left quadrant tenderness, remaining abdomen benign. EXTREMITIES: Moves all 4 extremities spontaneously. No edema, normal radial and dorsalis pedis pulses bilaterally. No cyanosis. BACK: no cervical, thoracic, lumbar midline tenderness. No saddle anesthesia, normal distal neurovascular exam. NEUROLOGICAL: Alert and oriented x3. Normal speech. [cranial nerves II through XII grossly intact]. PSYCH: Normal affect, normal mood. SKIN: Warm, dry, normal turgor. No rashes or lesions noted. Course - Re-evaluation Re-evalutation: Dry mucous membranes with dark urine and trace ketones. Given IV fluids. Patient's abdominal exam is very unremarkable other than mild epigastric tenderness. Initially given nausea medicine, afterwards give p.o. medicine. He tolerated this without any difficulty. Afterwards symptoms resolved. CMP is unremarkable including LFTs, bilirubin, alk phos. Lipase unremarkable. Low suspicion of acute abdomen or obstructive pathology. On reevaluation patient states that he just finished taking prednisone for his back as well. Has a history of gastritis, he smokes. Suspect gastritis component. Could also be medication she just started. I discussed these in detail, discussed options. Patient will be discharged with symptomatic medications, follow-up instructions, and return precautions which were discussed. Patient states understanding and agreement. - Vital Signs Vital signs: Temp Pulse Resp BP Pulse Ox 97.9 F 58 L 19 122/76 97 04/21/18 03:16 04/21/18 03:16 04/21/18 03:16 04/21/18 03:16 04/21/18 03:16 - Laboratory Result Diagrams: 04/21/18 00:27 Laboratory results interpreted by me: 04/20/18 04/21/18 23:11 00:27 Sodium 147.2 H Carbon Dioxide 31 H BUN 21 H Total Protein 8.3 H Urine Ketones TRACE H Urine Urobilinogen 2.0 H Discharge - Discharge Clinical Impression: Dehydration Nausea and vomiting Qualifiers: Vomiting type: unspecified Vomiting Intractability: non-intractable Qualified Code(s): R11.2 - Nausea with vomiting, unspecified Condition: Stable Disposition: HOME, SELF-CARE Additional Instructions: Your labs show some dehydration but no other concerning findings. Your evaluation is suggestive of gastritis (inflammation of your upper gastrointestinal tract), it is also quite likely that you are having side effects from the medications although this is not definite. Recommendation is to take the famotidine as prescribed, take Phenergan if needed for nausea, you have the option of discontinuing both or one of the medications to see how you do. Follow-up with primary care. Return for any concerning symptoms including vomiting, vomiting blood, fever, severe abdominal pain, black stools, or any other concerning symptoms. Prescriptions: Famotidine [Pepcid 20 mg Tablet] 20 mg PO BID #20 tablet Promethazine HCl [Phenergan 25 mg Tablet] 25 mg PO Q6H PRN #20 tablet PRN Reason: Referrals: LILIAN CHAPA PA-C [Primary Care Provider] - Follow up as needed
[2018-04-21 00:17] LABS: AMORPHOUS SEDIMENT,URINE TRACE /HPF; APPEARANCE,URINE CLOUDY; BILIRUBIN,URINE NEGATIVE (NEGATIVE); COLOR,URINE AMBER; GLUCOSE, URINE NEGATIVE (NEGATIVE); KETONES,URINE TRACE mg/dL (NEGATIVE); LEUKOCYTE ESTERASE,URINE NEGATIVE (NEGATIVE); NITRITE,URINE NEGATIVE (NEGATIVE); PROTEIN,URINE NEGATIVE (NEGATIVE); URINE SPECIFIC GRAVITY 1.019
[2018-04-21] MEDS ORDERED: HYDROCODONE/ACETAMINOPHEN 5-325 MG TABLET PO ONE (00:32)
[2018-04-21] MEDS ORDERED: SUCRALFATE 1 GM TABLET PO ONE (00:32)
[2018-04-21] MEDS ORDERED: FAMOTIDINE 20 MG TABLET PO ONE (00:32)
[2018-04-21 01:31] LABS: ALANINE AMINOTRANSFERASE 31 U/L (21-72); ALBUMIN 4.9 g/dL (3.5-5.0); ALKALINE PHOSPHATASE 75 U/L (38-126); ANION GAP 11 (5-19); ASPARTATE AMINO TRANSFERASE 25 U/L (17-59); BILIRUBIN,DIRECT 0.4 mg/dL (0.0-0.4); BILIRUBIN,TOTAL 0.5 mg/dL (0.2-1.3); BLOOD UREA NITROGEN 21 mg/dL (7-20); CALCIUM 10.1 mg/dL (8.4-10.2); CARBON DIOXIDE 31 mmol/L (22-30); CHLORIDE 105 mmol/L (98-107); GLUCOSE 92 mg/dL (75-110); LIPASE 88.3 U/L (23-300); POTASSIUM 4.5 mmol/L (3.6-5.0); SODIUM 147.2 mmol/L (137-145); TOTAL PROTEIN 8.3 g/dL (6.3-8.2)
[2018-04-21] MEDS ORDERED: ONDANSETRON ODT 4 MG TAB (6 TAB/ER DISP) PO PRN (02:53)
[2018-04-21 03:18] VITALS: BP 122/76
== END 2018-04-21 03:16 | disposition home or self-care (01) ==
LOC: ER 21:54
DX: E86.0 Dehydration (principal); R11.2 Nausea with vomiting, unspecified; F17.200 Nicotine dependence, unspecified, uncomplicated; J44.9 Chronic obstructive pulmonary disease, unspecified; Z87.442 Personal history of urinary calculi
CPT/HCPCS: 99284; 96361; 96374; 36415; 83690; 80053; 81001; J3490 ×2; J2405; J7030

== ENCOUNTER 2018-10-25 08:46 | Emergency (ER) | payer MEDICAID ==
[2018-10-25 08:52] VITALS: BP 126/81
--- NOTE | 2018-10-25 10:00 | ER Document Report ---
ED General - General Chief Complaint: Headache Stated Complaint: HEADACHE Time Seen by Provider: 10/25/18 09:50 Primary Care Provider: LILIAN CHAPA PA-C [Primary Care Provider] - Follow up as needed Mode of Arrival: Ambulatory Information source: Patient Notes: 38-year-old male presents emergency department with complaints of sinus pressure that started yesterday. Patient states that he had some associated nausea and vomiting yesterday but this resolved. Patient has a history of chronic back pain and takes oxycodone. Patient states that he has been taking this medication with minimal relief of symptoms. Patient states that today his sinus pressure has resolved significantly. Patient states that it is minimally there. He denies any sore throats, cough, fever, chills. Patient states that he is having some rhinorrhea. TRAVEL OUTSIDE OF THE [place] IN LAST 30 DAYS: No - HPI Onset: Yesterday Onset/Duration: Better Quality of pain: No pain, Dull Severity: None Pain Level: Denies Associated symptoms: Rhinnorhea Exacerbated by: Denies Relieved by: Denies Similar symptoms previously: Yes Recently seen / treated by doctor: No - Related Data Allergies/Adverse Reactions: No Known Allergies Allergy (Verified 10/25/18 08:47) Past Medical History - General Information source: Patient - Social History Smoking Status: Current Every Day Smoker Chew tobacco use (# tins/day): No Frequency of alcohol use: None Drug Abuse: None Family History: Reviewed & Not Pertinent, COPD, Other - Asthma Patient has suicidal ideation: No Patient has homicidal ideation: No Pulmonary Medical History: Reports: Hx Asthma, Hx COPD Renal/ Medical History: Reports: Hx Kidney Stones. Denies: Hx Peritoneal Dialysis GI Medical History: Reports: Hx Gastritis - And gastroenteritis Musculoskeletal Medical History: Reports Hx Arthritis, Reports Hx Musculoskeletal Deformity, Reports Hx Musculoskeletal Trauma Skin Medical History: Reports Hx Cellulitis Psychiatric Medical History: Reports: Hx Anxiety, Hx Bipolar Disorder, Hx Depression Traumatic Medical History: Reports: Hx Fractures - Left arm Past Surgical History: Reports: Hx Neurologic Surgery - BRAIN SURGERY AGE 2 to remove hematomas, no sequelae, Hx Oral Surgery - [place] teeth - Immunizations Immunizations up to date: Yes Hx Diphtheria, Pertussis, Tetanus Vaccination: Yes Review of Systems - Review of Systems Constitutional: No symptoms reported EENT: Sinus pressure Cardiovascular: No symptoms reported Respiratory: No symptoms reported Gastrointestinal: No symptoms reported Genitourinary: No symptoms reported Male Genitourinary: No symptoms reported Musculoskeletal: No symptoms reported Skin: No symptoms reported Hematologic/Lymphatic: No symptoms reported Neurological/Psychological: No symptoms reported -: Yes All other systems reviewed and negative Physical Exam - Vital signs Vitals: Temp Pulse Resp BP Pulse Ox 98.0 F 98 20 126/81 H 99 10/25/18 08:50 10/25/18 08:50 10/25/18 08:50 10/25/18 08:50 10/25/18 08:50 - Notes Notes: PHYSICAL EXAMINATION: GENERAL: Well-appearing, well-nourished and in no acute distress. HEAD: Atraumatic, normocephalic. Right sided frontal and maxillary sinus tenderness to palpation. EYES: Pupils equal round and reactive to light, extraocular movements intact, sclera anicteric, conjunctiva are normal. ENT: Nares patent, oropharynx clear without exudates. Moist mucous membranes. NECK: Normal range of motion, supple without lymphadenopathy LUNGS: Breath sounds clear to auscultation bilaterally and equal. No wheezes rales or rhonchi. HEART: Regular rate and rhythm without murmurs Musculoskeletal: Normal range of motion, no pitting or edema. No cyanosis. NEUROLOGICAL: Cranial nerves grossly intact. Normal speech, normal gait. Normal sensory, motor exams PSYCH: Normal mood, normal affect. SKIN: Warm, Dry, normal turgor, no rashes or lesions noted. Course - Re-evaluation Re-evalutation: 10/25/18 09:59 Patient states that his nausea and vomiting has completely resolved. Patient states that he is having a very mild pressure to the right maxillary sinus area. This is tender with palpation. Patient likely has sinusitis. I instructed the patient to take [id number] medication for symptom relief, to follow-up with his primary care physician this week and to return for worsening symptoms. Patient vital signs are stable. - Vital Signs Vital signs: Temp Pulse Resp BP Pulse Ox 98.0 F 98 20 126/81 H 99 10/25/18 08:50 10/25/18 08:50 10/25/18 08:50 10/25/18 08:50 10/25/18 08:50 Discharge - Discharge Clinical Impression: Sinusitis Qualifiers: Sinusitis location: maxillary Chronicity: acute Recurrence: non-recurrent Qualified Code(s): J01.00 - Acute maxillary sinusitis, unspecified Condition: Stable Disposition: HOME, SELF-CARE Instructions: Sinusitis ([facility]) Referrals: LILIAN CHAPA PA-C [Primary Care Provider] - Follow up as needed
== END 2018-10-25 10:08 | disposition home or self-care (01) ==
LOC: ER 08:46
DX: J01.00 Acute maxillary sinusitis, unspecified (principal); R51 Headache; R11.2 Nausea with vomiting, unspecified; F17.200 Nicotine dependence, unspecified, uncomplicated; Z87.442 Personal history of urinary calculi
CPT/HCPCS: 99283

== ENCOUNTER 2018-12-24 11:12 | Emergency (ER) | payer MEDICAID ==
[2018-12-24 11:29] VITALS: BP 118/68
[2018-12-24] MEDS ORDERED: LIDOCAINE 5% (700 MG) TRANSDERMAL ADH..PATCH TP ONE (12:57)
--- NOTE | 2018-12-24 13:08 | ER Document Report ---
ED Neck/Back Problem - General Chief Complaint: Back Pain Stated Complaint: LOWER BACK PAIN Time Seen by Provider: 12/24/18 12:40 Primary Care Provider: LILIAN CHAPA PA-C [Primary Care Provider] - Follow up as needed Mode of Arrival: Ambulatory Information source: Patient Notes: 38-year-old male presented to ED for complaint of low left back pain. He has a long history of back pain and is on chronic pain management for his back pain. 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 He states the pain is stabbing and it is painful to walk or move. He is taken hydrocodone meloxicam and muscle relaxers for his pain management. He states he is also gotten 2 pain shots in the back in the last year. Patient is alert oriented respirations regular and unlabored speaking in full sentences walks with a even steady gait. He is able to get up off the bed by himself. He denies any loss of control of bowel bladder, saddle anesthesia, loss of control or sensation to the lower extremities. TRAVEL OUTSIDE OF THE [place] IN LAST 30 DAYS: No - HPI Patient complains to provider of: Lower back Onset: Other - Chronic Onset: Chronic Timing: Still present Quality of pain: Sharp Severity: Severe Pain Level: 5 Recent injury: No Associated symptoms: Like prior neck/back pain, Radiation to leg - Left, Lower back pain. denies: Constipation, Fever, Incontinence, Motor loss, Numbness/tingling, Sensory loss, Sweaty, Unable to urinate Exacerbated by: Movement of trunk, Sitting position Relieved by: Nothing Similar symptoms previously: Yes Recently seen / treated by doctor: Yes - Related Data Allergies/Adverse Reactions: No Known Allergies Allergy (Verified 10/25/18 08:47) Past Medical History - General Information source: Patient - Social History Smoking Status: Current Every Day Smoker Cigarette use (# per day): Yes Smoking Education Provided: Yes - 4 minutes Lives with: Family Family History: Reviewed & Not Pertinent, COPD, Other - Asthma Patient has suicidal ideation: No Patient has homicidal ideation: No - Past Medical History Cardiac Medical History: Reports: None Pulmonary Medical History: Reports: Hx Asthma, Hx COPD EENT Medical History: Reports: None Neurological Medical History: Reports: None Endocrine Medical History: Reports: None Renal/ Medical History: Reports: None, Hx Kidney Stones Malignancy Medical History: Reports None GI Medical History: Reports: Hx Gastritis - And gastroenteritis Musculoskeletal Medical History: Reports Hx Arthritis, Reports Hx Musculoskeletal Deformity, Reports Hx Musculoskeletal Trauma Skin Medical History: Reports Hx Cellulitis Psychiatric Medical History: Reports: Hx Anxiety, Hx Bipolar Disorder, Hx Depression Traumatic Medical History: Reports: Hx Fractures - Left arm Infectious Medical History: Reports: None Past Surgical History: Reports: Hx Neurologic Surgery - BRAIN SURGERY AGE 2 to remove hematomas, no sequelae, Hx Oral Surgery - [place] teeth - Immunizations Immunizations up to date: Yes Hx Diphtheria, Pertussis, Tetanus Vaccination: Yes Review of Systems - Review of Systems Constitutional: No symptoms reported EENT: No symptoms reported Cardiovascular: No symptoms reported Respiratory: No symptoms reported Gastrointestinal: No symptoms reported Genitourinary: No symptoms reported Male Genitourinary: No symptoms reported Musculoskeletal: Back pain, Muscle pain, Muscle stiffness Skin: No symptoms reported Hematologic/Lymphatic: No symptoms reported Neurological/Psychological: No symptoms reported -: Yes All other systems reviewed and negative Physical Exam - Vital signs Vitals: Temp Pulse Resp BP Pulse Ox 98.4 F 93 16 118/68 98 12/24/18 11:27 12/24/18 11:27 12/24/18 11:27 12/24/18 11:27 12/24/18 11:27 Interpretation: Normal - General General appearance: Appears well, Alert - HEENT Head: Normocephalic, Atraumatic Eyes: Normal Pupils: PERRL - Respiratory Respiratory status: No respiratory distress Chest status: Nontender Breath sounds: Normal Chest palpation: Normal - Cardiovascular Rhythm: Regular Heart sounds: Normal auscultation Murmur: No - Abdominal Inspection: Normal Distension: No distension Bowel sounds: Normal Tenderness: Nontender Organomegaly: No organomegaly - Back Back: Normal, Tender, Vertebra tenderness. No: Deformity/step-off, CVA tenderness, Scars, Scoliosis, Wounds, Other - Extremities General upper extremity: Normal inspection, Nontender, Normal color, Normal ROM, Normal temperature General lower extremity: Normal inspection, Nontender, Normal color, Normal ROM, Normal temperature, Normal weight bearing. No: Larry's sign - Neurological Neuro grossly intact: Yes Cognition: Normal Orientation: AAOx4 [place] Coma Scale Eye Opening: Spontaneous [place] Coma Scale Verbal: Oriented [place] Coma Scale Motor: Obeys Commands Jorge Coma Scale Total: 15 Speech: Normal Motor strength normal: LUE, RUE, LLE, RLE Sensory: Normal - Psychological Associated symptoms: Normal affect, Normal mood - Skin Skin Temperature: Warm Skin Moisture: Dry Skin Color: Normal Course - Re-evaluation Re-evalutation: 12/24/18 13:26 After performing a Medical Screening Examination, I estimate there is LOW risk for EXPANDING OR RUPTURED ABDOMINAL AORTIC ANEURYSM, CAUDA EQUINA SYNDROME, EPIDURAL MASS LESION, or HERNIATED DISK CAUSING SEVERE SPINAL STENOSIS, thus I consider the discharge disposition reasonable. I have reevaluated this patient multiple times and no significant life threatening changes are noted. The patient and I have discussed the diagnosis and risks, and we agree with discharging home and close follow-up. We also discussed returning to the Emergency Department immediately if new or worsening symptoms occur with the understanding that symptoms and presentations can change. We have discussed the symptoms which are most concerning (e.g., saddle anesthesia, urinary or bowel incontinence or retention, changing or worsening pain) that necessitate immediate return. - Vital Signs Vital signs: Temp Pulse Resp BP Pulse Ox 98.4 F 93 16 118/68 98 12/24/18 11:27 12/24/18 11:27 12/24/18 11:27 12/24/18 11:27 12/24/18 11:27 Discharge - Discharge Clinical Impression: Low back pain Qualifiers: Chronicity: chronic Back pain laterality: left Sciatica presence: with sciatica Sciatica laterality: sciatica of left side Qualified Code(s): M54.42 - Lumbago with sciatica, left side Condition: Stable Disposition: HOME, SELF-CARE Additional Instructions: Chronic Back Pain Chronic back pain (pain persisting longer than three months) is a common problem. A medical evaluation can look for herniated disc, arthritis, osteoporosis, tumors, and infections. But at least half the time, there's no obvious treatable cause. Anxiety and depression tend to worsen back pain. Ibuprofen or other anti-inflammatory medicine can help. A heating pad, used for 15-20 minutes at a time, can ease pain. For this type of back pain, narcotic medicines should be avoided. Muscle relaxers are rarely helpful unless you're having spasms. Activity is important. Find an aerobic exercise program that your back can tolerate. Too much rest makes back pain worse. Specific back exercises are usually prescribed to strengthen the back and abdominal muscles. Often, a physical therapist can help. Avoid heavy lifting, working while bent over, or standing with both knees straight. Most back pain patients do better with a firm mattress. If new symptoms of a "herniated disc" (radiation of pain, numbness, or tingling down the back of the leg or weakness in the leg) occur, you should be re-examined. Chronic Pain Control Stress, inactivity, and depression make pain more severe regardless of the cause of the pain. Stress and poor physical condition can cause pain such as headaches and backache. Relaxation: Rest in a quiet place with your eyes closed for 20 minutes tw ice daily. Concentrate on a pleasant image, or simply "feel" your breathing. Clear your mind. Stress management: Deal with your "stressors." Either take action, or eliminate the stressor from your life. Don't let things hang over you. Accept those things you can't change. Nutrition: Eat small, balanced meals -- don't skip, don't overeat. Meals should be high-carbohydrate, low-sugar, low-fat. Exercise: Exercise helps painful conditions and eases stress. Get 30 minutes of moderate exercise, five days a week. Do an activity that does not flare your pain. Precautions: Pain which continues to disrupt daily activities, or which changes in nature, requires a medical evaluation. Pain Clinic referral is available. We do not manage chronic pain in the Emergency Department. We will try to appropriately help you through an acute flare of your chronic painful condition, but for on-going chronic pain that does not improve, you will need to see your private doctor or [facility]. We do not provide repeated medication management of chronic painful conditions. If you wish, we can provide the name of local pain management physicians. ICE PACKS: Apply ice packs frequently against the painful area. Many different schedules are recommended, such as "20 minutes on, 20 minutes off" or "one hour ice, two hours rest." If you need to work, you may need to go longer between ice treatments. You should plan to have the area ice packed AT LEAST one fourth of the time. The ice should be applied over the wrap, tape, or splint, or over a layer of cloth -- not directly against the skin. Some ice bags have a built-in cloth and can be put directly on the skin. WARM PACKS: After approximately two days, apply gentle heat (such as a heating pad or hot water bottle) for about 20 to 30 minutes about every two hours -- at least four times daily. Warmth and elevation will help you make a more rapid recovery , and will ease the pain considerably. Do not use HOT heat, and never apply heat for longer than 30 minutes. The continuous heat can invisibly damage skin and muscles -- even when no burn is seen on the surface. Damaged muscles can make you MORE sore. The Lidoderm patch has been applied in the emergency room. This needs to be removed in 12 hours. If this helps you with your pain can buy Lidoderm patches [id number]. Lidocaine patches need to be removed after 12 hours and left off for 12 hours and then reapplied. If you would prefer you can buy lidocaine cream is called Aspercreme lidocaine cream. Use it as per instructions. Please follow-up with your pain management doctor telephone tomorrow. You have denied any loss of control of your bowel bladder, any loss of control of your lower extremities, any loss of sensation to your lower extremities or any saddle anesthesia. If you have any of the symptoms, please return to the emergency room immediately. FOLLOW-UP CARE: If you have been referred to a physician for follow-up care, call the physicians office for an appointment as you were instructed or within the next two days. If you experience worsening or a significant change in your symptoms, notify the physician immediately or return to the Emergency Department at any time for re-evaluation. Forms: Smoking Cessation Education Referrals: LILIAN CHAPA PA-C [Primary Care Provider] - Follow up as needed
== END 2018-12-24 13:05 | disposition home or self-care (01) ==
LOC: ER 11:12
DX: G89.29 Other chronic pain (principal); M54.42 Lumbago with sciatica, left side; Z79.891 Long term (current) use of opiate analgesic; Z79.899 Other long term (current) drug therapy; Z79.1 Long term (current) use of non-steroidal anti-inflammatories (NSAID); F17.210 Nicotine dependence, cigarettes, uncomplicated; Z71.6 Tobacco abuse counseling
CPT/HCPCS: 99406; 99283; J3490